=== PATIENT | male | born 1970 ===

== ENCOUNTER 2021-12-22 02:42 | Emergency (ER) | payer SELFPAY ==
[~2021-12-22] VITALS: Ht 162 cm; Wt 63.5 kg
[2021-12-22] MEDS ORDERED: KETOROLAC 30 MG/ML VIAL IVP STA (03:03)
[2021-12-22 03:04] LABS: BASOPHILS # (AUTO) 0.1 10^3/uL (0.0-0.1); BASOPHILS % (AUTO) 1 % (0-10); EOSINOPHILS % (AUTO) 0 % (0-10); HEMATOCRIT 50 % (40-54); HEMOGLOBIN 16.5 g/dL (13.3-17.7); LYMPHOCYTES # (AUTO) 2.1 10^3/uL (1.0-4.0); LYMPHOCYTES % (AUTO) 21 % (12-44); MEAN CORPUSCULAR HEMOGLOBIN 28 pg (25-34); MEAN CORPUSCULAR HGB CONC 33 g/dL (32-36); MEAN CORPUSCULAR VOLUME 83 fL (80-99); MONOCYTES % (AUTO) 10 % (0-12); NEUTROPHILS # (AUTO) 6.7 10^3/uL (1.8-7.8); NEUTROPHILS % (AUTO) 68 % (42-75); PLATELET COUNT 208 10^3/uL (130-400); WHITE BLOOD COUNT 9.9 10^3/uL (4.3-11.0)
--- NOTE | 2021-12-22 03:09 | ED Abdominal Pain ---
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 LAST BM WAS YESTERDAY AND NORMAL NO FEVER NO HISTORY OF SIMILAR DENIES ANY MEDICAL PROBLEMS OR ANY PRIOR SURGERIES LAST ATE AT NOON YESTERDAY PT IS NOT COVID OR FLU VACCINATED PCP: NONE Allergies and Home Medications Allergies Coded Allergies: No Known Drug Allergies (Unverified , 12/22/21) Patient Home Medication List Ciprofloxacin HCl (Ciprofloxacin HCl) 500 Mg Tablet, 500 MG PO BID Prescribed by: WILDA LUKE on 12/22/21614 Tamsulosin HCl (Flomax) 0.4 Mg Cap, 0.4 MG PO DAILY Prescribed by: WILDA LUKE on 12/22/21614 Review of Systems Review of Systems Constitutional: no symptoms reported Respiratory: No Symptoms Reported Cardiovascular: No Symptoms Reported Gastrointestinal: See HPI, Abdominal Pain Genitourinary: See HPI Musculoskeletal: no symptoms reported Skin: no symptoms reported Psychiatric/Neurological: No Symptoms Reported Endocrine: No Symptoms Reported Hematologic/Lymphatic: No Symptoms Reported Past Itmcypf-Tmlcyo-Gfofar Hx Patient Social History Tobacco Use?: No Use of E-Cig and/or Vaping dev: No Substance use?: No Alcohol Use?: No Past Medical History Surgeries: No Respiratory: No Cardiac: No Neurological: No Genitourinary: No Gastrointestinal: No Musculoskeletal: No Endocrine: No HEENT: No Cancer: No Psychosocial: No Integumentary: No Blood Disorders: No Physical Exam Vital Signs Vital Signs - First Documented 12/22/21 02:42 Temp 37.1 Pulse 104 Resp 20 B/P (MAP) 159/104 (122) Pulse Ox 96 Capillary Refill : Height/Weight/BMI Height: '" Weight: lbs. oz. kg; BMI Method: General Appearance: WD/WN, no apparent distress, other (HOLDING LOWER ABDOMEN) Respiratory: normal breath sounds, no respiratory distress, no accessory muscle use Cardiovascular: regular rate, rhythm, no murmur Gastrointestinal: abnormal bowel sounds (RARE BOWEL SOUNDS), guarding, rebound, tenderness (DIFFUSE LOWER ABDOMINAL TENDERNESS. GUARDING AND IS MOST TENDER IN RLQ. + REBOUND ; BLADDER IS DISTENDED AND FIRM. ) Extremities: normal inspection, normal capillary refill Back: no CVA tenderness Neurologic/Psychiatric: no motor/sensory deficits, alert, normal mood/affect, oriented x 3 Skin: normal color (PT IS ), warm/dry; No rash Progress/Results/Core Measures Results/Orders Lab Results Laboratory Tests Test 12/22/21 02:55 12/22/21 03:00 12/22/21 03:15 Range/Units White Blood Count 9.9 4.3-11.0 10^3/uL Red Blood Count 5.95 H 4.30-5.52 10^6/uL Hemoglobin 16.5 13.3-17.7 g/dL Hematocrit 50 40-54 % Mean Corpuscular Volume 83 80-99 fL Mean Corpuscular Hemoglobin 28 25-34 pg Mean Corpuscular Hemoglobin Concent 33 32-36 g/dL Red Cell Distribution Width 13.1 10.0-14.5 % Platelet Count 208 130-400 10^3/uL Mean Platelet Volume 11.0 9.0-12.2 fL Immature Granulocyte % (Auto) 0 % Neutrophils (%) (Auto) 68 42-75 % Lymphocytes (%) (Auto) 21 12-44 % Monocytes (%) (Auto) 10 0-12 % Eosinophils (%) (Auto) 0 0-10 % Basophils (%) (Auto) 1 0-10 % Neutrophils # (Auto) 6.7 1.8-7.8 10^3/uL Lymphocytes # (Auto) 2.1 1.0-4.0 10^3/uL Monocytes # (Auto) 1.0 0.0-1.0 10^3/uL Eosinophils # (Auto) 0.0 0.0-0.3 10^3/uL Basophils # (Auto) 0.1 0.0-0.1 10^3/uL Immature Granulocyte # (Auto) 0.0 0.0-0.1 10^3/uL Sodium Level 140 135-145 MMOL/L Potassium Level 3.9 3.6-5.0 MMOL/L Chloride Level 107 98-107 MMOL/L Carbon Dioxide Level 23 21-32 MMOL/L Anion Gap 10 5-14 MMOL/L Blood Urea Nitrogen 17 7-18 MG/DL Creatinine 1.16 0.60-1.30 MG/DL Estimat Glomerular Filtration Rate 77 BUN/Creatinine Ratio 15 Glucose Level 120 H 70-105 MG/DL Calcium Level 9.7 8.5-10.1 MG/DL Corrected Calcium 8.5-10.1 MG/DL Total Bilirubin 0.5 0.1-1.0 MG/DL Aspartate Amino Transf (AST/SGOT) 43 H 5-34 U/L Alanine Aminotransferase (ALT/SGPT) 93 H 0-55 U/L Alkaline Phosphatase 61 40-136 U/L Total Protein 8.4 H 6.4-8.2 GM/DL Albumin 4.7 H 3.2-4.5 GM/DL Amylase Level 41 25-125 U/L Lipase 19 8-78 U/L Serum Alcohol < 10 <10 MG/DL SARS-CoV-2 RNA (RT-PCR) Not Detected Not Detecte Urine Color YELLOW Urine Clarity CLEAR Urine pH 5.5 5-9 Urine Specific [place] 1.015 L 1.016-1.022 Urine Protein NEGATIVE NEGATIVE Urine Glucose (UA) NEGATIVE NEGATIVE Urine Ketones NEGATIVE NEGATIVE Urine Nitrite NEGATIVE NEGATIVE Urine Bilirubin NEGATIVE NEGATIVE Urine Urobilinogen 0.2 < = 1.0 MG/DL Urine Leukocyte Esterase 1+ H NEGATIVE Urine RBC (Auto) 1+ H NEGATIVE Urine RBC RARE /HPF Urine WBC 5-10 H /HPF Urine Squamous Epithelial Cells RARE /HPF Urine Crystals NONE /LPF Urine Bacteria TRACE /HPF Urine Casts NONE /LPF Urine Mucus MODERATE H /LPF Urine Culture Indicated YES Urine Opiates Screen NEGATIVE NEGATIVE Urine Oxycodone Screen NEGATIVE NEGATIVE Urine Methadone Screen NEGATIVE NEGATIVE Urine Propoxyphene Screen NEGATIVE NEGATIVE Urine Barbiturates Screen NEGATIVE NEGATIVE Ur Tricyclic Antidepressants Screen NEGATIVE NEGATIVE Urine Phencyclidine Screen NEGATIVE NEGATIVE Urine Amphetamines Screen NEGATIVE NEGATIVE Urine Methamphetamines Screen NEGATIVE NEGATIVE Urine Benzodiazepines Screen NEGATIVE NEGATIVE Urine Cocaine Screen NEGATIVE NEGATIVE Urine Cannabinoids Screen NEGATIVE NEGATIVE My Orders Orders - WILDA LUKE DO Ed Iv/Invasive Line Start (12/22/21 02:49) Alcohol (12/22/21 02:49) Amylase (12/22/21 02:49) Cbc With Automated Diff (12/22/21 02:49) Comprehensive Metabolic Panel (12/22/21 02:49) Drug Screen Stat (Urine) (12/22/21 02:49) Lipase (12/22/21 02:49) Ua Culture If Indicated (12/22/21 02:49) Ct Abd/Pelvis Wo(Kidney Stone) (12/22/21 03:03) Ed Iv/Invasive Line Start (12/22/21 03:03) Lactated Ringers (Lr 1000 Ml Iv Solution (12/22/21 03:15) Ketorolac Injection (Toradol Injection) (12/22/21 03:03) Urine Culture (12/22/21 03:15) Catheter(Urinary) Insert & Ass 03,15 (12/22/21 03:43) Lidocaine 2% (Urojet) (Xylocaine Urojet) (12/22/21 03:45) Covid 19 Inhouse Test (12/22/21 04:33) Ceftriaxone 1 Gm Pre-Mix (Rocephin 1 Gm (12/22/21 06:00) Tamsulosin Capsule (Flomax Capsule) (12/22/21 06:00) Phenazopyridine Tablet (Pyridium Tablet) (12/22/21 07:00) Medications Given in ED Current Medications Medications Dose Ordered Sig/Lillie Route Start Time Stop Time Status Last Admin Dose Admin Ceftriaxone Sodium/Dextrose 50 ml @ 100 mls/hr ONCE ONCE IV 12/22/21 06:00 12/22/21 06:29 DC 12/22/21 06:08 100 MLS/HR Lactated Ringer's 1,000 ml @ 0 mls/hr Q0M ONCE IV 12/22/21 03:15 12/22/21 03:16 DC 12/22/21 03:33 0 MLS/HR Lidocaine HCl 10 ml ONCE ONCE TOP 12/22/21 03:45 12/22/21 03:47 DC 12/22/21 04:00 10 ML Vital Signs/I&O 12/22/21 02:42 Temp 37.1 Pulse 104 Resp 20 B/P (MAP) 159/104 (122) Pulse Ox 96 Progress Progress Note : Progress Note PT ONLY ABLE TO VOID A FEW CC'S, WITH MUCH URGE TO VOID ON REVIEW OF CT SCAN, PT NOTED TO HAVE A VERY DISTENDED BLADDER, AND MATTA PLACED WITH IMMEDIATE RETURN OF CLEAR URINE--CLAMPED AT 1000 ML. THEN DRAINED AGAIN FOR A TOTAL OF 1800 ML OUT IMMEDIATE RELIEF OF PAIN GIVEN IV FLUIDS AND TORADOL GIVEN ROCEPHIN AND FLOMAX MARKED DELAY IN OBTAINING CT RESULTS. Diagnostic Imaging Comments CT ABDOMEN/PELVIS--PER [facility] VIA FAX AT 6960 -BLADDER IS MARKEDLY DISTENDED -ENLARGED PROSTATE PROTRUDING INTO BASE OF BLADDER -MILD HYDRONEPHROSIS AND BILATERAL URETERAL DILATION WITH NON-SPECIFIC PERINEPHRIC SOFT TISSUE STRANDING -NO REAL OR URETERAL CALCULUS. NO BLADDER CALCIFICATION -NO APPENDICITIS Reviewed: Reviewed by Me Departure Impression Primary Impression: Acute urinary retention Additional Impressions: Acute UTI Prostate enlargement Disposition: HOME, SELF-CARE Condition: Improved Departure-Patient Inst. Decision time for Depature: 05:52 Referrals: UNKNOWN (PCP) Primary Care Physician BOO PINA MD Patient Instructions: Benign Prostatic Hyperplasia (Enlarged Prostate), How to Care for Your Matta Catheter, Male, Urinary Retention (DC), Urinary Tract Infection, Adult ED Add. Discharge Instructions: LOTS OF CLEAR LIQUIDS--WATER, BROTH, JELLO, GATORADE NO COFFEE, POP OR TEA LEAVE CATHETER IN PLACE, EMPTY WHEN BAG IS FULL TYLENOL 1 GRAM PLUS MOTRIN 800 MG 4 TIMES A DAY FOR PAIN FOLLOW UP WITH DR. PINA, UROLOGIST, FOR FURTHER CARE--CALL HIS OFFICE TODAY TO MAKE AN APPOINTMENT. Scripts Phenazopyridine HCl (Pyridium) 200 Mg Tablet 1 TAB PO TID, #15 TAB Prov: WILDA LUKE DO 12/22/21 Tamsulosin HCl (Flomax) 0.4 Mg Cap 0.4 MG PO DAILY, #30 CAP Prov: WILDA LUKE DO 12/22/21 Ciprofloxacin HCl (Ciprofloxacin HCl) 500 Mg Tablet 500 MG PO BID, #14 TAB Prov: WILDA LUKE DO 12/22/21 WILDA LUKE DO Dec 22, 2021 03:09
[2021-12-22] MEDS ORDERED: LACTATED RINGERS 1,000 ML IV ONE (03:15)
[2021-12-22 03:17] LABS: ALBUMIN 4.7 GM/DL (3.2-4.5); CHLORIDE 107 MMOL/L (98-107); POTASSIUM 3.9 MMOL/L (3.6-5.0); SODIUM 140 MMOL/L (135-145)
[2021-12-22 03:18] LABS: AMYLASE 41 U/L (25-125); CALCIUM 9.7 MG/DL (8.5-10.1)
[2021-12-22 03:19] LABS: GLUCOSE 120 MG/DL (70-105)
[2021-12-22 03:20] LABS: CARBON DIOXIDE 23 MMOL/L (21-32); TOTAL PROTEIN 8.4 GM/DL (6.4-8.2)
[2021-12-22 03:21] LABS: BILIRUBIN,TOTAL 0.5 MG/DL (0.1-1.0)
[2021-12-22 03:22] LABS: BILIRUBIN,URINE NEGATIVE (NEGATIVE); CLARITY,URINE CLEAR; COLOR,URINE YELLOW; GLUCOSE, URINE (UA) NEGATIVE (NEGATIVE); KETONES,URINE NEGATIVE (NEGATIVE); LEUKOCYTE ESTERASE ,URINE 1+ (NEGATIVE); NITRITE,URINE NEGATIVE (NEGATIVE); PH,URINE 5.5 (5-9); PROTEIN,URINE NEGATIVE (NEGATIVE)
[2021-12-22 03:23] LABS: ALKALINE PHOSPHATASE 61 U/L (40-136); CREATININE SERUM 1.16 MG/DL (0.60-1.30); GFR ESTIMATED 77
[2021-12-22 03:24] LABS: BUN/CREATININE RATIO 15
[2021-12-22 03:26] LABS: ALANINE AMINOTRANSFERASE 93 U/L (0-55)
[2021-12-22 03:27] LABS: LIPASE 19 U/L (8-78)
[2021-12-22 03:36] LABS: BACTERIA,URINE TRACE /HPF; RBC,URINE RARE /HPF; SQUAMOUS EPITHELIAL CELL,UR RARE /HPF
[2021-12-22 03:41] LABS: AMPHETAMINE SCREEN, URINE NEGATIVE (NEGATIVE); BARBITURATE SCREEN URINE NEGATIVE (NEGATIVE); BENZODIAZEPINES SCREEN URINE NEGATIVE (NEGATIVE); CANNABINOID SCREEN, URINE NEGATIVE (NEGATIVE); COCAINE SCREEN URINE NEGATIVE (NEGATIVE); METHADONE STAT NEGATIVE (NEGATIVE); OPIATE SCREEN URINE NEGATIVE (NEGATIVE); OXYCODONE STAT NEGATIVE (NEGATIVE); PROPOXYPHENE STAT NEGATIVE (NEGATIVE); TRICYCLIC ANTIDEPRESSANTS SCRE NEGATIVE (NEGATIVE)
[2021-12-22] MEDS ORDERED: LIDOCAINE UROJET 2% GEL 10 ML PKG TOP ONE (03:45)
[2021-12-22] MEDS ORDERED: TAMSULOSIN 0.4 MG (FLOMAX) CAP PO SCH (06:00)
[2021-12-22] MEDS ORDERED: cefTRIAXone 1 GM PRE-MIX 50 ML IV ONE (06:00)
--- NOTE | 2021-12-22 06:10 | Diagnostic Imaging Report ---
INDICATION: Right flank pain. TECHNIQUE: Multiple contiguous axial images were obtained through the abdomen and pelvis without the use of intravenous contrast. Auto Exposure Controls were utilized during the CT exam to meet ALARA standards for radiation dose reduction. There is no previous study for comparison. The visualized portions of the lung bases are clear. There is no pleural fluid collection. There is no free intraperitoneal air. The liver shows diffuse low-density change compatible with fatty infiltration. Gallbladder appears unremarkable. The spleen, adrenals, and pancreas are normal. Kidneys bilaterally show some mild perinephric soft tissue edema and mild hydronephrosis, without visualized stone. Differential diagnoses would include recently passed stone or pyelonephritis. Correlate with urinalysis. There is no retroperitoneal mass or adenopathy. There is no ascites or abnormal fluid collection. The appendix appears normal. Urinary bladder is distended. Prostate gland is enlarged. There is no overt bony abnormality. IMPRESSION: There is mild perinephric edema and mild bilateral hydronephrosis, without visualized stone. Pyelonephritis or recently passed stone should be considered. There is dilatation of the urinary bladder with prostatic enlargement. There is diffuse fatty infiltration of the liver. Dictated by: Dictated on workstation # [id number]
[2021-12-22] MEDS ORDERED: CIPR500T5 PO (06:15)
[2021-12-22] MEDS ORDERED: TMSL.4C PO (06:15)
[2021-12-22 06:46] VITALS: BP 145/92
[2021-12-22] MEDS ORDERED: PHEN-640 PO (06:49)
[2021-12-22] MEDS ORDERED: PHENAZOPYRIDINE 100 MG (PYRIDIUM) TABLET PO ONE (07:00)
== END 2021-12-22 06:53 | disposition home or self-care (01) ==
LOC: ER 02:45
DX: N39.0 Urinary tract infection, site not specified (principal); N40.0 Benign prostatic hyperplasia without lower urinary tract symptoms; Z20.822 Contact with and (suspected) exposure to COVID-19; Z28.310 Unvaccinated for COVID-19
CPT/HCPCS: 51702; 74176; 80053; 80306; 81000; 82150; 83690; 85025; 87088; 87636; 99284; G0480; 36415; 80320

== ENCOUNTER 2022-01-07 00:06 | Emergency (ER) | payer SELFPAY ==
[~2022-01-07] VITALS: Ht 162 cm; Wt 64.0 kg
[~2022-01-07 00:06] MED LIST: CIPR500T5 PO; PHEN-640 PO; TMSL.4C PO
[2022-01-07 00:28] LABS: BILIRUBIN,URINE NEGATIVE (NEGATIVE); CLARITY,URINE CLEAR; COLOR,URINE YELLOW; GLUCOSE, URINE (UA) NEGATIVE (NEGATIVE); KETONES,URINE NEGATIVE (NEGATIVE); LEUKOCYTE ESTERASE ,URINE NEGATIVE (NEGATIVE); NITRITE,URINE NEGATIVE (NEGATIVE); PROTEIN,URINE NEGATIVE (NEGATIVE)
[2022-01-07 00:41] LABS: BACTERIA,URINE NEGATIVE /HPF
--- NOTE | 2022-01-07 03:06 | ED GU-Male ---
General Chief Complaint: - Reproductive Stated Complaint: URINARY PROBLEMS Nursing Triage Note: brought in by [facility] for lower abdominal pain, urinary retention today, unable to void all day. 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 He had a catheter placed on December 22 for the same problem. He presented to the clinic yesterday and had the catheter removed after being on Flomax and antibiotics. He had also been diagnosed with urinary tract infection. He has been unable to urinate since then. Allergies and Home Medications Allergies Coded Allergies: No Known Drug Allergies (Unverified , 12/22/21) Patient Home Medication List Home Medication List Reviewed: Yes Ciprofloxacin HCl (Ciprofloxacin HCl) 500 Mg Tablet, 500 MG PO BID Prescribed by: WILDA LUKE on 12/22/2115 Phenazopyridine HCl (Pyridium) 200 Mg Tablet, 1 TAB PO TID Prescribed by: WILDA LUKE on 12/22/2149 Tamsulosin HCl (Flomax) 0.4 Mg Cap, 0.4 MG PO DAILY Prescribed by: WILDA LUKE on 12/22/2115 Review of Systems Review of Systems Constitutional: no symptoms reported EENTM: no symptoms reported Respiratory: no symptoms reported Cardiovascular: no symptoms reported Gastrointestinal: no symptoms reported Genitourinary: see HPI Musculoskeletal: no symptoms reported Skin: no symptoms reported Psychiatric/Neurological: No Symptoms Reported Endocrine: No Symptoms Reported Past Kjgpoxk-Cfqwca-Bwqemw Hx Patient Social History Tobacco Use?: No Substance use?: No Alcohol Use?: No Pt feels they are or have been: No Immunizations Up To Date First/Initial COVID19 Vaccinat: na Past Medical History Surgery/Hospitalization HX: bph, urinary retention Surgeries: No Respiratory: No Cardiac: No Neurological: No Genitourinary: Yes (Urinary obstruction) Gastrointestinal: No Musculoskeletal: No Endocrine: No HEENT: No Cancer: No Psychosocial: No Integumentary: No Blood Disorders: No Physical Exam Vital Signs Vital Signs - First Documented 01/07/22 00:06 Temp 36.2 Pulse 101 Resp 22 B/P (MAP) 155/103 (120) Pulse Ox 98 O2 Delivery Room Air Capillary Refill : Less Than 3 Seconds Height, Weight, BMI Height: '" Weight: lbs. oz. kg; 24.00 BMI Method: General Appearance: WD/WN, no apparent distress HEENT: normal ENT inspection Cardiovascular: regular rate, rhythm, no edema, no murmur Respiratory: lungs clear, normal breath sounds, no respiratory distress Gastrointestinal: normal bowel sounds, non tender, soft Extremities: normal inspection Neurologic/Psychiatric: alert, normal mood/affect, oriented x 3 Skin: normal color, warm/dry Progress/Results/Core Measures Suspected Sepsis SIRS Temperature: Pulse: 101 Respiratory Rate: 22 Blood Pressure 155 /103 Mean: 120 Results/Orders Lab Results Laboratory Tests Test 01/07/22 00:19 Range/Units Urine Color YELLOW Urine Clarity CLEAR Urine pH 7.0 5-9 Urine Specific [place] 1.010 L 1.016-1.022 Urine Protein NEGATIVE NEGATIVE Urine Glucose (UA) NEGATIVE NEGATIVE Urine Ketones NEGATIVE NEGATIVE Urine Nitrite NEGATIVE NEGATIVE Urine Bilirubin NEGATIVE NEGATIVE Urine Urobilinogen 0.2 < = 1.0 MG/DL Urine Leukocyte Esterase NEGATIVE NEGATIVE Urine RBC (Auto) NEGATIVE NEGATIVE Urine RBC NONE /HPF Urine WBC NONE /HPF Urine Crystals NONE /LPF Urine Bacteria NEGATIVE /HPF Urine Casts NONE /LPF Urine Mucus NEGATIVE /LPF Urine Culture Indicated NO My Orders Orders - ROSY CEE MD Ua Culture If Indicated (01/07/22 00:24) Vital Signs/I&O 01/07/22 01/07/22 00:06 03:07 Temp 36.2 36.1 Pulse 101 84 Resp 22 18 B/P (MAP) 155/103 (120) 150/95 Pulse Ox 98 97 O2 Delivery Room Air Room Air Capillary Refill : Less Than 3 Seconds Blood Pressure Mean: 120 Progress Note : Progress Note Echeverria catheter was replaced. There was greater than 700 mL of urine in the canister during my examination. Urine showed no evidence of persistent infection. Discharge instructions were reviewed in detail with the language line clinical dental technician. Departure Impression Primary Impression: Acute urinary retention Disposition: 01 HOME, SELF-CARE Condition: Improved Departure-Patient Inst. Decision time for Depature: 03:03 Referrals: NO,LOCAL PHYSICIAN (PCP/Family) Primary Care Physician Patient Instructions: How to Care for Your Echeverria Catheter, Male, Urinary Retention Add. Discharge Instructions: Call the clinic this morning. Notify them that the catheter had to be replaced. Make a follow-up appointment for soon as possible. Seek referral to a uro logist. Keep the catheter bag below the level of your bladder as much as possible and empty the bag often. Continue taking Flomax every day. Return to the ER if you have worsening symptoms. All discharge instructions reviewed with patient and/or family. Voiced understanding. Copy Copies To 1: [facility]/ROSY WEN MD Jan 07, 2022 03:06
[2022-01-07 03:07] VITALS: BP 150/95
== END 2022-01-07 03:32 | disposition home or self-care (01) ==
LOC: EDUNIT# 00:09 → ER 00:11
DX: R33.9 Retention of urine, unspecified (principal); Z28.310 Unvaccinated for COVID-19
CPT/HCPCS: 51702; 81000

== ENCOUNTER 2022-03-03 16:28 | Emergency (ER) | payer SELFPAY ==
[~2022-03-03] VITALS: Ht 162 cm; Wt 64.0 kg
--- NOTE | 2022-03-03 16:52 | ED GU-Male ---
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 He is having tachycardic and they were concerned he might be septic. He has an indwelling Echeverria catheter. He is not quite sure why it is in but states he was having trouble urinating. Has been in for about 2 months and he sees Dr. Hand. He states he was at the walk-in clinic today trying to get a leg bag for his catheter as the large bag broke about a month and a half ago. He has made an improvised water bottle and after that catches his urine at present and is requesting a leg bag. He does endorse that he had fevers body aches and chills over the last couple of days. No nausea or vomiting. He has been had a mild cough which is nonproductive. Allergies and Home Medications Allergies Coded Allergies: No Known Drug Allergies (Unverified , 12/22/21) Patient Home Medication List Home Medication List Reviewed: Yes Ciprofloxacin HCl (Ciprofloxacin HCl) 500 Mg Tablet, 500 MG PO BID Prescribed by: WILDA LUKE on 12/22/21 0615 Levofloxacin (Levofloxacin) 500 Mg Tablet, 500 MG PO DAILY Prescribed by: HERIBERTO COVARRUBIAS MD on 03/03/22 175 Phenazopyridine HCl (Pyridium) 200 Mg Tablet, 1 TAB PO TID Prescribed by: WILDA LUKE on 12/22/21 0649 Tamsulosin HCl (Flomax) 0.4 Mg Cap, 0.4 MG PO DAILY Prescribed by: WILDA LUKE on 12/22/21 0615 Review of Systems Review of Systems Constitutional: chills, fever EENTM: no symptoms reported Respiratory: no symptoms reported Cardiovascular: no symptoms reported Gastrointestinal: no symptoms reported Genitourinary: other (Catheter issues) Musculoskeletal: no symptoms reported Skin: no symptoms reported Psychiatric/Neurological: No Symptoms Reported Endocrine: No Symptoms Reported Hematologic/Lymphatic: No Symptoms Reported Past Tnybxpc-Flzdnt-Kmkqgo Hx Patient Social History Tobacco Use?: No Use of E-Cig and/or Vaping dev: No Substance use?: No Alcohol Use?: No Immunizations Up To Date First/Initial COVID19 Vaccinat: na Past Medical History Surgery/Hospitalization HX: bph, urinary retention Surgeries: No Respiratory: No Cardiac: No Neurological: No Genitourinary: Yes (Urinary obstruction) Gastrointestinal: No Musculoskeletal: No Endocrine: No HEENT: No Cancer: No Psychosocial: No Integumentary: No Blood Disorders: No Family Medical History Reviewed Nursing Family Hx No Pertinent Family Hx Physical Exam Vital Signs Capillary Refill : Height, Weight, BMI Height: '" Weight: lbs. oz. kg; 24.00 BMI Method: General Appearance: WD/WN, no apparent distress HEENT: normal ENT inspection, pharynx normal Neck: non-tender, supple, normal inspection Cardiovascular: no murmur, tachycardia Respiratory: chest non-tender, lungs clear, normal breath sounds, no respiratory distress, no accessory muscle use Gastrointestinal: normal bowel sounds, non tender, soft, no organomegaly, other (Echeverria catheter in place with Adaptic water bottle catching mechanism. Urine is clear) Extremities: normal range of motion, non-tender, normal inspection, no pedal edema, no calf tenderness, normal capillary refill Neurologic/Psychiatric: alert, normal mood/affect, oriented x 3 Skin: normal color, warm/dry Progress/Results/Core Measures Suspected Sepsis SIRS Temperature: Pulse: Respiratory Rate: Laboratory Tests 03/03/22 16:59: White Blood Count 12.5H Blood Pressure / Mean: Laboratory Tests 03/03/22 16:59: Creatinine 0.97, Platelet Count 213, Total Bilirubin 0.6 Results/Orders Lab Results Laboratory Tests Test 03/03/22 16:59 03/03/22 17:03 03/03/22 17:36 Range/Units White Blood Count 12.5 H 4.3-11.0 10^3/uL Red Blood Count 5.82 H 4.30-5.52 10^6/uL Hemoglobin 16.5 13.3-17.7 g/dL Hematocrit 48 40-54 % Mean Corpuscular Volume 83 80-99 fL Mean Corpuscular Hemoglobin 28 25-34 pg Mean Corpuscular Hemoglobin Concent 34 32-36 g/dL Red Cell Distribution Width 12.9 10.0-14.5 % Platelet Count 213 130-400 10^3/uL Mean Platelet Volume 11.6 9.0-12.2 fL Immature Granulocyte % (Auto) 0 % Neutrophils (%) (Auto) 86 H 42-75 % Lymphocytes (%) (Auto) 6 L 12-44 % Monocytes (%) (Auto) 8 0-12 % Eosinophils (%) (Auto) 0 0-10 % Basophils (%) (Auto) 0 0-10 % Neutrophils # (Auto) 10.7 H 1.8-7.8 10^3/uL Lymphocytes # (Auto) 0.8 L 1.0-4.0 10^3/uL Monocytes # (Auto) 1.0 0.0-1.0 10^3/uL Eosinophils # (Auto) 0.0 0.0-0.3 10^3/uL Basophils # (Auto) 0.0 0.0-0.1 10^3/uL Immature Granulocyte # (Auto) 0.1 0.0-0.1 10^3/uL Neutrophils % (Manual) 83 % Lymphocytes % (Manual) 6 % Monocytes % (Manual) 6 % Eosinophils % (Manual) 1 % Reactive Lymphocytes 4 % Blood Morphology Comment NORMAL Sodium Level 138 135-145 MMOL/L Potassium Level 4.3 3.6-5.0 MMOL/L Chloride Level 102 98-107 MMOL/L Carbon Dioxide Level 20 L 21-32 MMOL/L Anion Gap 16 H 5-14 MMOL/L Blood Urea Nitrogen 15 7-18 MG/DL Creatinine 0.97 0.60-1.30 MG/DL Estimat Glomerular Filtration Rate 95 BUN/Creatinine Ratio 15 Glucose Level 110 H 70-105 MG/DL Calcium Level 9.7 8.5-10.1 MG/DL Corrected Calcium 8.5-10.1 MG/DL Total Bilirubin 0.6 0.1-1.0 MG/DL Aspartate Amino Transf (AST/SGOT) 26 5-34 U/L Alanine Aminotransferase (ALT/SGPT) 47 0-55 U/L Alkaline Phosphatase 52 40-136 U/L Total Protein 8.8 H 6.4-8.2 GM/DL Albumin 4.8 H 3.2-4.5 GM/DL Influenza Type A (RT-PCR) Not Detected Not Detecte Influenza Type B (RT-PCR) Not Detected Not Detecte SARS-CoV-2 RNA (RT-PCR) Not Detected Not Detecte My Orders Orders - HERIBERTO COVARRUBIAS DO Comprehensive Metabolic Panel (03/03/22 16:48) Ua Culture If Indicated (03/03/22 16:48) Covid 19 Inhouse Test (03/03/22 16:48) Cbc With Automated Diff (03/03/22 16:48) Influenza A And B By Pcr (03/03/22 16:48) Ns Iv 1000 Ml (Sodium Chloride 0.9%) (03/03/22 17:00) Acetaminophen Tablet (Tylenol Tablet) (03/03/22 17:00) Manual Differential (03/03/22 16:59) Medications Given in ED Current Medications Medications Dose Ordered Sig/Lillie Route Start Time Stop Time Status Last Admin Dose Admin Acetaminophen 1,000 mg ONCE ONCE PO 03/03/22 17:00 03/03/22 17:01 DC 03/03/22 17:02 1,000 MG Vital Signs/I&O Capillary Refill : Departure Communication (Admissions) Patient is hemodynamically stable. Influenza and COVID testing negative however I still highly suspect he has the flu. Abdomen abundance of caution I have given him some antibiotics for possible community-acquired pneumonia this would also cover urinary source. I did advise him to follow-up with his primary doctor or new urology specialist as his current urologist retired. It is unclear to me and he does not know why he has the catheter in place so I am reluctant to remove it today. He is given strict return precautions and close follow-up. Impression Primary Impression: Echeverria catheter problem Qualified Codes: T83.9XXA - Unspecified complication of genitourinary pr osthetic device, implant and graft, initial encounter Additional Impression: Tachycardia Disposition: 01 HOME, SELF-CARE Condition: Stable Departure-Patient Inst. Referrals: NO,LOCAL PHYSICIAN (PCP/Family) Primary Care Physician Add. Discharge Instructions: I believe you have the flu. Please take Tylenol and ibuprofen as needed for body aches. Increase your fluids at home and rest. Out of caution, i will prescribe an antibiotic. Take it as prescribed until gone. Follow-up with the urologist by calling to schedule an appointment. I have provided the information for you as is retiring. You may also follow-up with your primary doctor regarding catheter management as well. BAILEY MIRANDA [place] [id number] , [place] [id number] Creo que tienes gripe. [place] Tylenol e ibuprofeno segn sea necesario para los lucretia corporales. [place] tus lquidos en casa y descansa. Por precaucin, le recetar un antibitico. Tmelo segn lo prescrito hasta que se acabe. Seguimiento con el urlogo llamando para programar vitaliy david. Le he proporcionado la informacin ya que el Dr. Hand se jubila. [place] puede hacer un seguimiento con pham mdico de cabecera con respecto al manejo del catter. BAILEY MIRANDA Urlogo [place] [id number] [id number] Scripts Levofloxacin (Levofloxacin) 500 Mg Tablet 500 MG PO DAILY for 7 Days, #7 TAB Prov: HERIBERTO COVARRUBIAS DO 03/03/22 HERIBERTO COVARRUBIAS DO Mar 03, 2022 16:52
[2022-03-03] MEDS ORDERED: ACETAMINOPHEN 500 MG TAB (TYLENOL) PO ONE (17:00)
[2022-03-03] MEDS ORDERED: NS IV 1000 ML 1,000 ML IV SCH (17:00)
[2022-03-03 17:06] LABS: BASOPHILS % (AUTO) 0 % (0-10); EOSINOPHILS % (AUTO) 0 % (0-10); HEMATOCRIT 48 % (40-54); HEMOGLOBIN 16.5 g/dL (13.3-17.7); LYMPHOCYTES # (AUTO) 0.8 10^3/uL (1.0-4.0); LYMPHOCYTES % (AUTO) 6 % (12-44); MEAN CORPUSCULAR HEMOGLOBIN 28 pg (25-34); MEAN CORPUSCULAR HGB CONC 34 g/dL (32-36); MEAN CORPUSCULAR VOLUME 83 fL (80-99); MEAN PLATELET VOLUME 11.6 fL (9.0-12.2); MONOCYTES % (AUTO) 8 % (0-12); NEUTROPHILS # (AUTO) 10.7 10^3/uL (1.8-7.8); NEUTROPHILS % (AUTO) 86 % (42-75); PLATELET COUNT 213 10^3/uL (130-400); WHITE BLOOD COUNT 12.5 10^3/uL (4.3-11.0)
[2022-03-03 17:25] LABS: ALBUMIN 4.8 GM/DL (3.2-4.5); CHLORIDE 102 MMOL/L (98-107); POTASSIUM 4.3 MMOL/L (3.6-5.0); SODIUM 138 MMOL/L (135-145)
[2022-03-03 17:26] LABS: CALCIUM 9.7 MG/DL (8.5-10.1)
[2022-03-03 17:27] LABS: GLUCOSE 110 MG/DL (70-105); TOTAL PROTEIN 8.8 GM/DL (6.4-8.2)
[2022-03-03 17:29] LABS: BILIRUBIN,TOTAL 0.6 MG/DL (0.1-1.0); CARBON DIOXIDE 20 MMOL/L (21-32)
[2022-03-03 17:31] LABS: ALKALINE PHOSPHATASE 52 U/L (40-136); CREATININE SERUM 0.97 MG/DL (0.60-1.30); GFR ESTIMATED 95
[2022-03-03 17:32] LABS: BUN/CREATININE RATIO 15
[2022-03-03 17:34] LABS: ALANINE AMINOTRANSFERASE 47 U/L (0-55)
[2022-03-03 17:42] LABS: BILIRUBIN,URINE NEGATIVE (NEGATIVE); CLARITY,URINE CLEAR; COLOR,URINE YELLOW; GLUCOSE, URINE (UA) NEGATIVE (NEGATIVE); KETONES,URINE NEGATIVE (NEGATIVE); LEUKOCYTE ESTERASE ,URINE NEGATIVE (NEGATIVE); NITRITE,URINE POSITIVE (NEGATIVE); PH,URINE 5.5 (5-9); PROTEIN,URINE TRACE (NEGATIVE)
[2022-03-03 17:48] LABS: EOSINOPHILS % (MANUAL) 1 %; LYMPHOCYTES % (MANUAL) 6 %; MONOCYTES % (MANUAL) 6 %; NEUTROPHILS % (MANUAL) 83 %; RBC MORPH NORMAL; REACTIVE LYMPHOCYTES 4 %
[2022-03-03] MEDS ORDERED: LEVO-55 PO (17:53)
[2022-03-03 17:57] LABS: BACTERIA,URINE TRACE /HPF; RBC,URINE RARE /HPF; WBC,URINE RARE /HPF
[2022-03-03 18:20] VITALS: BP 130/86
== END 2022-03-03 18:20 | disposition home or self-care (01) ==
LOC: EDUNIT# 16:28 → ER 16:29
DX: T83.9XXA Unspecified complication of genitourinary prosthetic device, implant and graft, initial encounter (principal); R00.0 Tachycardia, unspecified; Z28.310 Unvaccinated for COVID-19; Z20.822 Contact with and (suspected) exposure to COVID-19
CPT/HCPCS: 36415; 80053; 81000; 85007; 85027; 87077; 87088; 87186; 87636; 99283